=== PATIENT | male | born 1965 | race Caucasian/White ===

== ENCOUNTER 2019-08-14 07:44 | Inpatient (IN) ==
[2019-08-09 12:52] LABS: Appearance,Urine CLEAR; Bacteria,Urine 0 /hpf (0); Bilirubin,Urine NEG (NEG); Color,Urine YELLOW; Glucose,Urine (UA) NEGATIVE (NEG); Ketones,Urine NEG (NEG); Leukocyte Esterase,Urine NEG /uL (NEG); Mucus,Urine FEW /hpf (0); Nitrate,Urine NEG (NEG); Protein,Urine NEG (NEG); Specific Gravity,Urine 1.015 (1.000-1.035); Urine Blood NEG mg/dL (<0.03); Urine RBC 0 /hpf (0-1); Urine Squamous Epithelial Cell 0 /hpf (0-4); Urine WBC < 1 /hpf (0-4); Urobilinogen,Urine NEG (NEG)
[2019-08-09 13:10] LABS: Blood Urea Nitrogen 9 mg/dl (6-20); Calcium 9.4 mg/dl (8.6-10.4); Carbon Dioxide 29 mmol/L (22-30); Chloride 100 mmol/L (96-108); Glomerular Filtration Rate 102; Glucose 105 mg/dL (70-105)
[2019-08-09 13:11] LABS: Basophils # (Auto) 0 K/mcL (0.0-0.3); Basophils % (Auto) 0.4 % (0.0-2.0); Eosinophils # (Auto) 0 K/mcL (0.0-0.7); Eosinophils % (Auto) 0.7 % (0.0-7.0); Granulocytes % (Auto) 69.3 % (38.0-78.0); Hematocrit 43.8 % (41.0-55.0); Hemoglobin 14.8 g/dL (13.5-16.5); Lymphocytes % (Auto) 23.7 % (15.5-49.0); Mean Cell Volume 97.9 fL (80.0-100.0); Mean Corpuscular HGB Conc 33.8 g/dL (31.0-36.0); Mean Platelet Volume 9.1 fL (7.4-10.4); Monocytes # (Auto) 0.3 K/mcL (0.1-0.9); Monocytes % (Auto) 5.9 % (1.0-12.0); Platelet Count 180 K/mcL (140-440); RBC 4.47 M/mcL (4.50-5.90); Red Cell Distribution Width 12.6 % (11.5-14.5); WBC 4.4 K/mcL (4.5-11.0)
[~2019-08-14 07:44] MED LIST: 0.9 % SODIUM CHLORIDE 9 ML, KETOROLAC 30 MG, ROPIVACAINE HCL/PF 49.5 ML, EPINEPHrine 0.... IJ SCH; CELECOXIB 200 MG CAPSULE PO SCH; IPRATROPIUM/ALBUTEROL 3 ML AMPUL.NEB NEB PRN; PREGABALIN 75 MG CAPSULE PO SCH; SCOPOLAMINE 1 PATCH PATCH TOPICAL PRN; ceFAZolin 2 GM in DEXTROSE 5% IN WATER 50 ML IV SCH
[2019-08-14] MEDS: oxyCODONE 10 MG TAB.ER.12H PO SCH ×2 (08:05→08:06)
[2019-08-14] MEDS ORDERED: MIDAZOLAM 2 MG/2 ML VIAL IV ONE (13:30)
[2019-08-14] MEDS ORDERED: TRANEXAMIC ACID 1,000 MG/10 ML VIAL IV ONE ×2 (13:30→14:37)
[2019-08-14] MEDS ORDERED: KETAMINE 100 MG/ML ML IV ONE (13:30)
[2019-08-14] MEDS ORDERED: DEXAMETHASONE 10 MG/ML VIAL IV ONE (13:30)
[2019-08-14] MEDS ORDERED: PROPOFOL 200 MG/20 ML VIAL IV ONE (13:30)
[2019-08-14] MEDS ORDERED: fentaNYL 250 MCG/5 ML VIAL IV ONE (13:30)
[2019-08-14] MEDS ORDERED: LIDOCAINE HCL/PF 100 MG/5 ML SYRINGE IV ONE (13:30)
[2019-08-14] MEDS ORDERED: ONDANSETRON 4 MG/2 ML VIAL IV ONE (13:30)
[2019-08-14] MEDS ORDERED: GLYCOPYRROLATE 0.2 MG/ML VIAL IV ONE (13:30)
[2019-08-14] MEDS ORDERED: ROPIVACAINE HCL/PF 30 ML VIAL IJ ONE (13:30)
[2019-08-14] MEDS ORDERED: HYDROmorphone 2 MG/ML VIAL IV PRN (14:21)
[2019-08-14] MEDS ORDERED: ACETAMINOPHEN 1,000 MG/100 ML BOTTLE IV ONE (14:21)
[2019-08-14] MEDS ORDERED: fentaNYL 100 MCG/2 ML VIAL IV PRN (14:21)
[2019-08-14] MEDS ORDERED: MEPERIDINE 25 MG/ML SYRINGE IV PRN (14:21)
[2019-08-14] MEDS ORDERED: METHOCARBAMOL 1,000 MG/10 ML VIAL IV PRN (14:21)
[2019-08-14] MEDS ORDERED: ONDANSETRON 4 MG/2 ML VIAL IV PRN ×2 (14:21→14:37)
[2019-08-14] MEDS ORDERED: IPRATROPIUM/ALBUTEROL 3 ML AMPUL.NEB NEB PRN (14:21)
[2019-08-14] MEDS ORDERED: LACTATED RINGERS 1,000 ML IV SCH (14:30)
--- NOTE | 2019-08-14 14:36 | Brief Operative Note ---
Date of procedure: 08/14/19 Pre-op diagnosis: left knee instability total knee arthroplasty Post-op diagnosis: same Procedure: revision left total knee arthroplasty with liner exchange Grafts/Implants: Yes Anesthesia: GETA Findings: no infection Complications: none Surgeon: Joel Renae Cutch Cleaner: Amanda Cade Estimated blood loss (cc): 100 Tourniquet Time (Minutes): 36 Specimens Removed/Pathology: other (culture and frozen x 2) Condition: stable Disposition: PACU
[2019-08-14] MEDS ORDERED: ONDANSETRON 4 MG ODT TABLET SL PRN (14:37)
[2019-08-14] MEDS ORDERED: BISACODYL 10 MG SUPP.RECT PR PRN (14:37)
[2019-08-14] MEDS ORDERED: POLYETHYLENE GLYCOL 3350 17 GM PACKET PO PRN (14:37)
[2019-08-14] MEDS ORDERED: FLEETS ADULT ENEMA PR PRN (14:37)
[2019-08-14] MEDS ORDERED: MAGNESIUM HYDROXIDE 30 ML ORAL.SUSP PO PRN (14:37)
[2019-08-14] MEDS ORDERED: BENZOCAINE/MENTHOL 1 LOZENGE PO PRN (14:37)
[2019-08-14] MEDS ORDERED: GENTAMICIN SULFATE 800 MG/20 ML VIAL IR ONE (14:39)
--- NOTE | 2019-08-14 15:07 | Operative Note ---
DATE OF OPERATION: 08/14/2019 PREOPERATIVE DIAGNOSIS: Instability, left total knee arthroplasty with pain. POSTOPERATIVE DIAGNOSIS: Instability, left total knee arthroplasty with pain. PROCEDURE PERFORMED: Left knee revision total knee arthroplasty of one component, a polyethylene liner. SURGEON: Greg Renae M.D. DISTRIBUTION OPERATIONS SUPERVISOR SURGEON: Amanda Cade PA-C. The PA's assistance was required for the safe and efficient completion of the entire case. This provider's expertise and technical skill were required throughout the case. The PA assisted with preoperative coordination, intraoperative retraction, wound closure, dressing and splint application, as well as postoperative documentation and care coordination. ANESTHESIA: Spinal with LMA assist. ESTIMATED BLOOD LOSS: 100 mL. COMPLICATIONS: None noted. SPECIMENS REMOVED: Frozen specimens x2 with no neutrophils per high-powered field and cultures x1. DRAINS: None. TOURNIQUET TIME: 36 minutes at 300 mmHg. IMPLANTS: DePuy liner size 10, 10 mm thickness. INDICATIONS: The patient had a previous total knee arthroplasty. He has had increasing pain over the last 3-4 months with some increase in his instability. I felt that it was related to loosening of ligaments. We have aspirated with no evidence of infection. After a long discussion about treatment options, the patient elected to proceed with a revision total knee arthroplasty. The risks and benefits were discussed with the patient in detail including, but not limited to, the risks of anesthesia, problems with the heart or lungs related to anesthesia, infection, compromise or injury to the nerves and blood vessels, deep venous thrombosis, pulmonary embolism, pneumonia, continued pain after surgery, worsening pain or symptoms after surgery, swelling, loss of motion, instability, leg length discrepancy, and need for repeat surgery. DESCRIPTION OF PROCEDURE: The patient was seen in the pre-anesthesia waiting room where all questions were answered and the correct side and site were identified and marked. The patient was transferred to the operating room and administered the anesthetic and pre-operative antibiotics were withheld until cultures and then given. A time-out was then called. The extremity was prepped and draped, exsanguinated, and the tourniquet was inflated to 300 mmHg. A midline skin incision was then made and a standard medial parapatellar arthrotomy was performed. I debrided the medial and lateral gutters, as well as the suprapatellar pouch and infrapatellar fat pad. There was a moderate amount of inflammation and scar noted. This was debrided. I took frozen sections from the infrapatellar fat pad and from the synovium. I sent this. It had no neutrophils per high-powered field. I also cultured. Antibiotics were given at this point. I then removed the polyethylene liner. He had a contraction posteriorly so I used a lamina sole leveler, then I released the posterior contraction. I then trialed with a 10 mm polyethylene up from the 7 mm that he currently had. This provided excellent range of motion with full flexion and extension. He was stable to varus and valgus stress at 0, 30, and 90 and stable to anterior drawer at 90 degrees. I then thoroughly irrigated with Irrisept and saline. I placed the final polyethylene component size 10 mm thickness. Irrigation with 3 liters of antibiotic saline was then performed using jet-lavage. We let the tourniquet down and coagulated bleeding vessels. We injected a 100 cubic centimeter volume including Ropivacaine 49.25 cubic centimeters at 5 milligrams per cubic centimeter, Ketorolac 30 milligrams, and Epinephrine 0.5 milligrams into 100 cubic centimeters volume of normal saline. We closed the retinaculum with #2 Stratafix and 0 Vicryl. We closed the subcutaneous tissue and skin in layers out to Dermabond on the skin. A sterile pressure dressing was applied. All needle and sponge counts were correct. The patient was transferred to the recovery room in stable condition. BIANCA:suzi Job ID: [id number] Doc ID: [id number] Greg Renae MD
[2019-08-14] MEDS: LACTATED RINGERS 1,000 ML IV SCH ×2 (15:59→23:02)
[2019-08-14] MEDS: KETOROLAC 30 MG/ML VIAL IV SCH (17:15)
[2019-08-14] MEDS: oxyCODONE/APAP 5/325MG TABLET PO PRN (19:18)
[2019-08-14] MEDS: ASPIRIN 325 MG ENTERIC COATED TABLET PO SCH (20:04)
[2019-08-14] MEDS: DOCUSATE SODIUM 100 MG CAPSULE PO SCH (20:04)
[2019-08-14] MEDS ORDERED: GABAPENTIN 400 MG CAPSULE PO SCH (21:00)
[2019-08-14] MEDS ORDERED: SENNOSIDES 1 TABLET PO SCH (21:00)
[2019-08-14] MEDS: ceFAZolin 1 GM VIAL IV SCH (22:56)
[2019-08-14] MEDS: METHOCARBAMOL 750 MG TABLET PO PRN (22:56)
[2019-08-14] MEDS: 0.9 % SODIUM CHLORIDE 10 ML SYRINGE IV SCH (22:57)
[2019-08-15] MEDS: KETOROLAC 30 MG/ML VIAL IV SCH ×3 (00:16→13:12)
[2019-08-15] MEDS: oxyCODONE/APAP 5/325MG TABLET PO PRN ×2 (00:17→06:06)
[2019-08-15] MEDS: 0.9 % SODIUM CHLORIDE 10 ML SYRINGE IV SCH (06:06)
[2019-08-15 06:18] LABS: Hematocrit 40.5 % (41.0-55.0); Hemoglobin 13.5 g/dL (13.5-16.5)
--- NOTE | 2019-08-15 06:57 | Discharge Summary ---
Providers - Providers Patient information: Note initiated : 08/15/19 at 6:55 am Service Date, if different from initiated Date: [] Patient: Paulo Maher 54 y/o M admitted on 08/14/19 for Left Total Knee Arthroplasty Revision, Liner. Chief Complaint: [POD #1 s/p left polyliner exchange and scar tissue excision Patient doing very well. Reports very minimal to no pain today, denies CP, SOB and no calf pain.] Discharge date: 08/15/19 Hospitalization Hospital Course: Patient was brought into OR yesterday for polyliner exchange and scar tissue excision of left knee. Surgery went on without complication. Will discharge to home today and follow up in our clinic in 10-14 days for PO care Discharge diagnosis: left knee pain Reason for admission: post operative pain management Procedures: left knee polyliner exchange and scar tissue excision Exam - Exam Incision healing: Yes Incision draining: No Incision red: No Incision swollen: No Incision inflamed: No Clean and dry: Yes Weight bearing status: as tolerated Range of motion: full foot and ankle Ortho Discharge - TKA - Patient Instructions Diet: Regular Diet Activity: weight bearing as tolerated Total Knee Protocol: For Total Knee: Start ROM CAR with stationary bike or rocking chair. Work on gaining full extension of knee. Posterior dislocation precautions provided. Hip abductor strengthening and gait training instructions provided. Apply Cryocuff as instructed. Dressing Care: Other (Glue patch covered by silver adhesive dressing. Keep garcia dressing on knee until post op appointment. It's shower proof. Pat and air dry when done. Recommend JUSTINA wrapping for swelling. If garcia dressing comes off before appointment, glue patch underneath is also water proof. Keep covered after showers. We will remove at post op) - Follow Up Plan Follow Up Appointments: Amanda Cade PA-C [Physician Waterworks Chief Engineer] - 08/29/19 11:00 am Disposition: Home, Self-Care Prognosis: Good Rehab Potential: Good I certify that the patient requires SNF services: No Overall status at discharge: patient is progressing back to baseline - Orders For Discharge Prescriptions: oxyCODONE/APAP [Percocet 5-325 mg] 1 - 2 tab PO Q4HP PRN #60 tab PRN Reason: Pain Level 3-6 Prescription Printed Additional Discharge Orders: Physical Therapy at Discharge - TKA Location: None Selected Pending Studies Resuscitation Status Full Code Diet Regular Diet Start TueAug 14 1439 Aspirin (Ecotrin) 325 mg PO BID [facility] Last Admin: 08/14/19 20:04 Dose: 325 mg Documented by: RADHA Docusate Sodium (Colace) 100 mg PO BID [facility] Last Admin: 08/14/19 20:04 Dose: 100 mg Documented by: RADHA Gabapentin (Neurontin) 400 mg PO [facility] Last Admin: 08/14/19 20:04 Dose: 400 mg Documented by: RADHA Lactated Ringer's (Lactated Ringers) 1,000 mls @ 125 mls/hr IV .Q8H [facility] Last Infusion: 08/15/19 01:51 Dose: 0 mls/hr Documented by: Admin: 08/14/19 23:02 Dose: Not Given Documented by: Admin: 08/14/19 15:59 Dose: 125 mls/hr Documented by: AKASH Ketorolac Tromethamine (Toradol) 30 mg IV Q6 [facility] Stop: 08/16/19 12:01 Last Admin: 08/15/19 06:06 Dose: 30 mg Documented by: Admin: 08/15/19 00:16 Dose: 30 mg Documented by: Admin: 08/14/19 17:15 Dose: 30 mg Documented by: AKASH Methocarbamol (Robaxin) 750 mg PO Q6HP PRN PRN Reason: Muscle Spasm Last Admin: 08/14/19 22:56 Dose: 750 mg Documented by: RADHA Oxycodone/Acetaminophen (Percocet 5-325 Mg) 0 tab PO Q4HP PRN PRN Reason: PAIN LEVEL 3-6 Last Admin: 08/15/19 06:06 Dose: 2 tab Documented by: Admin: 08/15/19 00:17 Dose: 2 tab Documented by: Admin: 08/14/19 19:18 Dose: 2 tab Documented by: RADHA Senna (Senokot) 2 tab PO [facility] Last Admin: 08/14/19 20:04 Dose: 2 tab Documented by: RADHA Sodium Chloride (Saline Flush) 10 ml IV Q8 [facility] Last Admin: 08/15/19 06:06 Dose: 10 ml Documented by: Admin: 08/14/19 22:57 Dose: Not Given Documented by: RADHA Shift Summary 08/15/19 04:10 Shift Summary by Laurie Bell Patient alert and oriented x4. Medicated for knee pain with Percocet 2 tabs x2 and Robaxin PO x1 with good effect. Patient eating and drinking well. IVF discontinued. Voiding adequately using the urinal. Dressing on left knee CDI. Cryo-cuff applied. Uses IS 4000 level. VSS. Initialized on 08/15/19 04:10 - END OF NOTE
[2019-08-15] MEDS: METHOCARBAMOL 750 MG TABLET PO PRN (08:47)
[2019-08-15] MEDS: ASPIRIN 325 MG ENTERIC COATED TABLET PO SCH (08:47)
[2019-08-15] MEDS: DOCUSATE SODIUM 100 MG CAPSULE PO SCH (08:48)
[2019-08-15] MEDS: LACTATED RINGERS 1,000 ML IV SCH (08:56)
[2019-08-15] MEDS: ceFAZolin 1 GM VIAL IV SCH (09:02)
[2019-08-15] MEDS ORDERED: FLU VACC QS2019-20(6MOS UP)/PF 60 MCG/0.5 ML SYRINGE IM ONE (10:00)
--- NOTE | 2019-08-15 15:42 | Surgical Pathology Report ---
HISTOLOGY SPECIMEN MICROSCOPIC DIAGNOSIS SPECIMEN A - SOFT TISSUE, LEFT KNEE FAT PAD, BIOPSY: -- DENSE FIBROUS TISSUE WITH SLIGHT CHRONIC INFLAMMATION. -- NO NEUTROPHILS IDENTIFIED. SPECIMEN B - SOFT TISSUE, LEFT KNEE SYNOVIUM, BIOPSY: -- FIBROADIPOSE TISSUE AND SKELETAL MUSCLE WITH SLIGHT CHRONIC INFLAMMATION. -- NO NEUTROPHILS IDENTIFIED. (ACP:sln) INTRAOPERATIVE CONSULTATION FROZEN SECTION DIAGNOSES (Performed at [place], [place]) SPECIMEN A - KNEE, LEFT FAT PAD, BIOPSY: -- NO NEUTROPHILS IDENTIFIED. SPECIMEN B - KNEE, LEFT SYNOVIUM, BIOPSY: -- NO NEUTROPHILS IDENTIFIED. (ACP:sln) CLINICAL HISTORY Knee pain post total. GROSS DESCRIPTION Specimen A is received fresh as left knee fat pad and consists of a portion of proctor-white soft tissue that measures 1.4 x 0.7 x 0.4 cm. Entirely submitted for frozen section analysis and for permanent sections as FSA. Specimen B is received fresh as left synovium and consists of a portion of red-proctor soft tissue that measures 0.7 x 0.6 x 0.4 cm. Entirely submitted for frozen section analysis and for permanent sections as FSB. (ACP:sln) Electronically Signed by: Alexander Villavicencio M.D.
== END 2019-08-15 13:50 | disposition home or self-care (01) | DRG 489 ==
LOC: MEDSUR 07:44
PROVIDERS: ADMIT Orthopaedic Surgery Sports Medicine; ATTEND Orthopaedic Surgery Sports Medicine